=== PATIENT | female | born 2005 | race Two or more races ===

== ENCOUNTER 2023-10-13 15:27 | Emergency (ER) | payer SELFPAY ==
[2023-10-13 17:15] LABS: APPEARANCE,URINE CLEAR; BILIRUBIN,URINE NEGATIVE (NEGATIVE); COLOR,URINE YELLOW; GLUCOSE,URINE NEGATIVE (NEGATIVE); KETONES,URINE NEGATIVE (NEGATIVE); LEUKOCYTE ESTERASE,URINE NEGATIVE (NEGATIVE); NITRITE,URINE NEGATIVE (NEGATIVE); OCCULT BLOOD,URINE NEGATIVE (NEGATIVE); PH,URINE 6.5 (5.0-8.0); PROTEIN,URINE NEGATIVE (NEGATIVE); UROBILINOGEN,URINE 0.2 EU/dL (<2.0)
[2023-10-13] MEDS ORDERED: Sodium Chloride 0.9% 1,000 ML IV ONE (19:28)
[2023-10-13] MEDS ORDERED: Ketorolac 30 MG/ML SDV IM ONE (19:28)
[2023-10-13] MEDS ORDERED: Ketorolac 30 MG/ML SDV IVPUSH ONE (19:39)
[2023-10-13 19:56] LABS: HEMATOCRIT 40.1 % (37.0-47.0); HEMOGLOBIN 12.9 g/dL (12.0-16.0); MEAN CORPUSCULAR HEMOGLOBIN 26.9 pg (28.0-32.0); MEAN CORPUSCULAR HGB CONC 32.2 g/dL (32.0-36.0); MEAN CORPUSCULAR VOLUME 83.5 fL (83.0-99.0); PLATELET COUNT,PLT 118 K/uL (150-400); WHITE BLOOD CELL COUNT,WBC 4.84 K/uL (3.9-11.3)
[2023-10-13 20:19] LABS: A/G RATIO 1.1 (0.9-1.6); ALBUMIN 3.9 g/dL (3.4-5.0); BILIRUBIN TOTAL 0.3 mg/dL (0.2-1.0); CALCIUM 9.4 mg/dL (8.5-10.1); CARBON DIOXIDE,CO2 27.9 mmol/L (21.0-32.0); CREATININE 0.7 mg/dL (0.6-1.0); EST CRCL DRUG DOSING (CG) 96.74 mL/min; PROTEIN TOTAL,TP 7.4 g/dL (6.4-8.2)
[2023-10-13 20:40] LABS: EOSINOPHILS PERCENT MAN 2 % (0-6); LYMPHOCYTES PERCENT MAN 33 % (24-44); MONOCYTES ABSOLUTE MAN 0.34 K/uL (0.00-0.80); MONOCYTES PERCENT MAN 7 % (0-8); SEG NEUTROPHILS ABSOLUTE MAN 2.81 K/uL (1.80-7.70); SEG NEUTROPHILS PERCENT MAN 58 % (41-71)
[2023-10-13] MEDS ORDERED: Iopamidol 755 MG/ML 500 ML Multipack Bottle IVPUSH ONE (21:00)
[2023-10-13] MEDS ORDERED: Acetaminophen 500 MG Tab PO ONE (21:48)
[2023-10-13] MEDS ORDERED: Lidocaine 4% 1 each Patch TOP PRN (21:49)
== END 2023-10-13 22:02 | disposition left against medical advice (07) ==
LOC: MW.ED 15:27
DX: R10.32 Left lower quadrant pain (principal); M54.50 Low back pain, unspecified
CPT/HCPCS: 36415; 74177; 80053; 81003; 81025; 83690; 85025; 96361; 96374; 99284; J1885; J7030; Q9967

== ENCOUNTER 2025-04-24 10:40 | Emergency (ER) | payer SELFPAY | END 2025-04-24 12:04 | disposition home or self-care (01) | LOC: MW.ED 10:40 | DX: N92.6 Irregular menstruation, unspecified (principal) | CPT/HCPCS: 99281 ==